=== PATIENT | male | born 1980 | race Caucasian/White ===

== ENCOUNTER → 2016-10-01 | Outpatient (CLI) | payer MEDICAID ==
--- NOTE | 2016-10-01 14:33 | DX ---
Lumbar Spine, Six Views Indication: Back pain. Comparison: May 12, 2010, chest x-ray. Findings: Disk spaces are relatively well maintained. There is no anterolisthesis or retrolisthesis w ith flexion or extension. Minimal degenerative changes are present in the lower lumbar spine. Mild lo ss of height at T11 is unchanged from the prior chest x-ray from May 12, 2010. Impression: No radiographic evidence for the patient's symptoms of lower back pain. If pain persists, MRI may be helpful to evaluate further.
--- NOTE | 2016-10-01 15:10 | CT ---
CT Scan of the Head (Without Contrast) Clinical Indications: 35-year-old male who had a traumatic brain injury 13 years ago, and has had so me recurrent pain and stiffness, with discomfort persistent over the last 2 weeks. ICD 10 Diagnostic Code: Z87.828. Technique: Axial CT images were acquired from the foramen magnum through the skull vertex, without i ntravenous contrast. Soft tissue, subdural, and bone windows were reviewed on the computer workstati on. Images were reformatted at 5.00 and 1.50 mm increments, and are reformatted in sagittal and soraya nal planes. DFOV is 25.0 cm. Dose reduction techniques were utilized. Comparison Study: None available. Findings: There is encephalomalacia in the inferior right frontal lobe, consistent with the patient's history of a prior old traumatic brain injury. There are no new mass lesions identified, and there i s no evidence of an acute or subacute intracranial hemorrhage, or an acute infarct. The ventricles a nd subarachnoid spaces are normal in size for this age group. The bone windows reveal no sign of a f racture. The visualized paranasal sinuses and mastoid air cells are free of fluid. The craniocervica l junction, sella turcica, and the pineal gland appear normal. There is a tiny dot of air noted along the anterior/superior left lobe, of uncertain significance. Each lens is appropriately positioned, a nd the globe contour and retrobulbar intra and extraconal fat appear normal on each side. If there is continuing clinical concern regarding the patient's symptoms, MR imaging could be considered, if oth erwise not contraindicated. Impression: Encephalomalacia in the inferior right frontal lobe, consistent with a prior old traumatic brain inju ry. There is no acute intracranial abnormality observed.
== END ==
LOC: FIMAGING 13:45
PROVIDERS: ATTEND Physician Assistant
DX: M54.5 Low back pain (principal); G93.89 Other specified disorders of brain